=== PATIENT | female | born 1935 | race Caucasian/White ===

== ENCOUNTER → 2016-07-21 | Outpatient (CLI) | payer MEDICARE, BC | LOC: MW.CHFP 16:44 | PROVIDERS: ATTEND Nurse Practitioner Family | DX: R35.0 Frequency of micturition (principal) | CPT/HCPCS: 81001; 87086; G0463 ==

== ENCOUNTER → 2016-07-28 | Outpatient (CLI) | payer MEDICARE, BC | LOC: MW.CHFP 08:20 | PROVIDERS: ATTEND Nurse Practitioner Family | DX: R35.0 Frequency of micturition (principal) | CPT/HCPCS: 81001 ==

== ENCOUNTER → 2016-08-04 | Outpatient (CLI) | payer MEDICARE, BC | END | disposition home or self-care (01) | LOC: MW.CHFP 07:51 | PROVIDERS: ATTEND Nurse Practitioner Family | DX: N39.0 Urinary tract infection, site not specified (principal) | CPT/HCPCS: 81001 ==

== ENCOUNTER → 2016-08-13 | Outpatient (CLI) | payer MEDICARE, BC | LOC: MW.CHFP 11:41 | PROVIDERS: ATTEND Nurse Practitioner Family | DX: R35.0 Frequency of micturition (principal) | CPT/HCPCS: 81001; 87086 ==

== ENCOUNTER 2017-02-08 09:02 | Emergency (ER) | payer MEDICARE, BC ==
[2017-02-08 09:12] VITALS: BP 145/88
--- NOTE | 2017-02-08 09:54 | EDM.PDOC ---
ED HPI GENERAL MEDICAL PROBLEM - General Chief Complaint: General Stated Complaint: COLD Time Seen by Provider: 02/08/17 09:34 - History of Present Illness INITIAL COMMENTS - FREE TEXT/NARRATIVE: HISTORY AND PHYSICAL: History of present illness: Patient's an 82-year-old white female who presents with concern of congestion and cold symptoms for the last several weeks she denies fever chills nausea vomiting chest pain or shortness of breath she states she's had a mild nonproductive cough she denies abdominal pain or other concern Review of systems: As per history of present illness and below otherwise all systems reviewed and negative. Past medical history: As per history of present illness and as reviewed below otherwise noncontributory. Surgical history: As per history of present illness and as reviewed below otherwise noncontributory. Social history: No reported history of drug or alcohol abuse. Family history: As per history of present illness and as reviewed below otherwise noncontributory. Physical exam: HEENT: Atraumatic, normocephalic, pupils reactive, negative for conjunctival pallor or scleral icterus, mucous membranes moist, throat clear, neck supple, nontender, trachea midline. Lungs: Clear to auscultation, breath sounds equal bilaterally, chest nontender. Heart: S1S2, regular, negative for clicks, rubs, or JVD. Abdomen: Soft, nondistended, nontender. Negative for masses or hepatosplenomegaly. Negative for costovertebral tenderness. Pelvis: Stable nontender. Genitourinary: Deferred. Rectal: Deferred. Extremities: Atraumatic, negative for cords or calf pain. Neurovascular unremarkable. Neuro: Awake, alert, oriented. Cranial nerves II through XII unremarkable. Cerebellum unremarkable. Motor and sensory unremarkable throughout. Exam nonfocal. Diagnostics: Influenza screen patient deferred chest x-ray or other diagnostics Therapeutics: None Impression: #1 sinusitis #2 pneumonitis Definitive disposition and diagnosis as appropriate pending reevaluation and review of above. - Related Data Allergies Allergy/AdvReac Type Severity Reaction Status Date / Time codeine Allergy Rash Verified 02/08/17 09:07 oxycodone Allergy Hives Verified 02/08/17 09:07 Sulfa (Sulfonamide Allergy Rash Verified 02/08/17 09:07 Antibiotics) Home Meds: Home Meds Levothyroxine [Synthroid] 50 mcg PO ACBREAKFAST 11/26/14 [History] Docusate Sodium [Stool Softener] 2 cap PO BEDTIME 03/13/16 [History] MV,Ca,Min/Iron Fum/FA/Vit K [Multi For Her Tablet] 1 tab PO DAILY 03/13/16 [ History] atorvaSTATin Calcium [Atorvastatin Calcium] 1 tab PO DAILY 03/13/16 [History] Past Medical History HEENT History: Other HEENT History: wears glasses Cardiovascular History: Reports: High Cholesterol Respiratory History: Reports: None Gastrointestinal History: Reports: None Genitourinary History: Reports: None SEATING CAPTAIN History: Reports: None Musculoskeletal History: Reports: Fracture Other Musculoskeletal History: right leg Neurological History: Reports: Migraines Other Neuro History: visual disturbances with migranes Psychiatric History: Reports: None Endocrine/Metabolic History: Reports: Hypothyroidism Hematologic History: Reports: None Immunologic History: Reports: None Oncologic (Cancer) History: Reports: None Dermatologic History: Reports: None - Infectious Disease History Infectious Disease History: Reports: Chicken Pox, Measles, Mumps - Past Surgical History Head Surgeries/Procedures: Reports: None HEENT Surgical History: Reports: Tonsillectomy Respiratory Surgical History: Reports: None GI Surgical History: Reports: Appendectomy, Cholecystectomy Female Surgical History: Reports: Hysterectomy, Salpingo-Oophorectomy, Other (See Below) Endocrine Surgical History: Reports: None Neurological Surgical History: Reports: None Musculoskeletal Surgical History: Reports: None Oncologic Surgical History: Reports: None Social & Family History - Family History Family Medical History: Noncontributory - Tobacco Use Smoking Status *Q: Never Smoker Second Hand Smoke Exposure: No - Caffeine Use Caffeine Use: Reports: Coffee - Recreational Drug Use Recreational Drug Use: No Drug Use in Last 12 Months: No ED ROS GENERAL - Review of Systems Review Of Systems: ROS reveals no pertinent complaints other than HPI. ED EXAM, GENERAL - Physical Exam Exam: See Below (See dictation) Course - Vital Signs Last Recorded V/S: Last Vital Signs Temp 36.1 C 02/08/17 09:08 Pulse 82 02/08/17 09:08 Resp 18 02/08/17 09:08 BP 145/88 H 02/08/17 09:08 Pulse Ox 97 02/08/17 09:08 - Orders/Labs/Meds Orders: Active Orders 24 hr Category Date Time Status INFLUENZA A+B AG SCREEN [RM] Stat Lab 02/08/17 09:26 Received Departure - Departure Time of Disposition: 09:53 Disposition: Home, Self-Care 01 Condition: Good Clinical Impression: Sinusitis, Pneumonitis - Discharge Information Referrals: Carolina Richardson RN EXAMINER [Primary Care Provider] - Additional Instructions: The following information is given to patients seen in the emergency department who are being discharged to home. This information is to outline your options for follow-up care. We provide all patients seen in our emergency department with a follow-up referral. The need for follow-up, as well as the timing and circumstances, are variable depending upon the specifics of your emergency department visit. If you don't have a primary care physician on staff, we will provide you with a referral. We always advise you to contact your personal physician following an emergency department visit to inform them of the circumstance of the visit and for follow-up with them and/or the need for any referrals to a consulting specialist. The emergency department will also refer you to a specialist when appropriate. This referral assures that you have the opportunity for followup care with a specialist. All of these measure are taken in an effort to provide you with optimal care, which includes your followup. Under all circumstances we always encourage you to contact your private physician who remains a resource for coordinating your care. When calling for followup care, please make the office aware that this follow-up is from your recent emergency room visit. If for any reason you are refused follow-up, please contact the [facility] emergency department at and asked to speak to the emergency department charge nurse. Levaquin as prescribed [id number] cough medicine as directed follow-up primary medical doctor 1-2 days return as needed as discussed - My Orders Last 24 Hours: My Active Orders 02/08/17 09:26 INFLUENZA A+B AG SCREEN [RM] Stat - Assessment/Plan Last 24 Hours: My Active Orders 02/08/17 09:26 INFLUENZA A+B AG SCREEN [RM] Stat
== END 2017-02-08 10:13 | disposition home or self-care (01) ==
LOC: MW.ED 09:02
DX: J18.9 Pneumonia, unspecified organism (principal); J32.9 Chronic sinusitis, unspecified; Z88.5 Allergy status to narcotic agent; Z88.2 Allergy status to sulfonamides; Z79.899 Other long term (current) drug therapy
CPT/HCPCS: 87804; 99282; 99283

== ENCOUNTER 2018-10-07 08:42 | Emergency (ER) | payer MEDICARE, BC ==
--- NOTE | 2018-10-07 09:02 | EDM.PDOC ---
ED HPI GENERAL MEDICAL PROBLEM - General Chief Complaint: Lower Extremity Injury/Pain Stated Complaint: SPRAIN RIGHT FOOT Time Seen by Provider: 10/07/18 09:01 Source of Information: Reports: Patient - History of Present Illness INITIAL COMMENTS - FREE TEXT/NARRATIVE: HISTORY AND PHYSICAL: History of present illness: [Patient stood up from a chair yesterday and had a fall no head injury or loss of consciousness her foot became entangled under [employer] chair she now complains of 5 out of 10 with weightbearing nonradiating unable to bear full weight on her right foot ] Review of systems: As per history of present illness and below otherwise all systems reviewed and negative. Past medical history: As per history of present illness and as reviewed below otherwise noncontributory. Surgical history: As per history of present illness and as reviewed below otherwise noncontributory. Social history: No reported history of drug or alcohol abuse. Family history: As per history of present illness and as reviewed below otherwise noncontributory. Physical exam: HEENT: Atraumatic, normocephalic, pupils reactive, negative for conjunctival pallor or scleral icterus, mucous membranes moist, throat clear, neck supple, nontender, trachea midline. Lungs: Clear to auscultation, breath sounds equal bilaterally, chest nontender. Heart: S1S2, regular, negative for clicks, rubs, or JVD. Abdomen: Soft, nondistended, nontender. Negative for masses or hepatosplenomegaly. Negative for costovertebral tenderness. Pelvis: Stable nontender. Genitourinary: Deferred. Rectal: Deferred. Extremities: Atraumatic, negative for cords or calf pain. Neurovascular unremarkable. Right foot is tender over the dorsum was moderate bruising and swelling otherwise neurovascularly intact no open lesion Neuro: Awake, alert, oriented. Cranial nerves II through XII unremarkable. Cerebellum unremarkable. Motor and sensory unremarkable throughout. Exam nonfocal. Diagnostics: [Right foot 3 views ] Therapeutics: [Rest ice ibuprofen ] Impression: [Right foot pain/injury] Definitive disposition and diagnosis as appropriate pending reevaluation and review of above. Right Feet Pain Score (Numeric/FACES): 8 - Related Data Allergies Allergy/AdvReac Type Severity Reaction Status Date / Time codeine Allergy Rash Verified 10/07/18 09:01 oxycodone Allergy Hives Verified 10/07/18 09:01 Sulfa (Sulfonamide Allergy Rash Verified 10/07/18 09:01 Antibiotics) Home Meds: Home Meds Levothyroxine [Synthroid] 50 mcg PO ACBREAKFAST 11/26/14 [History] Docusate Sodium [Stool Softener] 2 cap PO BEDTIME 03/13/16 [History] MV,Ca,Min/Iron Fum/FA/Vit K [Multi For Her Tablet] 1 tab PO DAILY 03/13/16 [ History] atorvaSTATin Calcium [Atorvastatin Calcium] 1 tab PO DAILY 03/13/16 [History] Past Medical History HEENT History: Other HEENT History: wears glasses Cardiovascular History: Reports: High Cholesterol Respiratory History: Reports: None Gastrointestinal History: Reports: None Genitourinary History: Reports: None ASSIGNER History: Reports: None Musculoskeletal History: Reports: Fracture Other Musculoskeletal History: right leg Neurological History: Reports: Migraines Other Neuro History: visual disturbances with migranes Psychiatric History: Reports: None Endocrine/Metabolic History: Reports: Hypothyroidism Hematologic History: Reports: None Immunologic History: Reports: None Oncologic (Cancer) History: Reports: None Dermatologic History: Reports: None - Infectious Disease History Infectious Disease History: Reports: Chicken Pox, Measles, Mumps - Past Surgical History Head Surgeries/Procedures: Reports: None HEENT Surgical History: Reports: Tonsillectomy Respiratory Surgical History: Reports: None GI Surgical History: Reports: Appendectomy, Cholecystectomy Female Surgical History: Reports: Hysterectomy, Salpingo-Oophorectomy, Other (See Below) Endocrine Surgical History: Reports: None Neurological Surgical History: Reports: None Musculoskeletal Surgical History: Reports: None Oncologic Surgical History: Reports: None Social & Family History - Family History Family Medical History: Noncontributory - Caffeine Use Caffeine Use: Reports: Coffee Review of Systems - Review of Systems Review Of Systems: See Below ED EXAM, GENERAL - Physical Exam Exam: See Below Course - Vital Signs Last Recorded V/S: Last Vital Signs Temp 96.9 F 10/07/18 09:03 Pulse 77 10/07/18 09:03 Resp 16 10/07/18 09:03 BP 131/70 10/07/18 09:03 Pulse Ox 95 10/07/18 09:03 Departure - Departure Time of Disposition: 09:54 Disposition: Home, Self-Care 01 Condition: Good Clinical Impression: Foot pain, Foot injury - Discharge Information Forms: ED Department Discharge Additional Instructions: Cam boot crutches nonweightbearing Rest ice ibuprofen Follow-up with orthopedist, call phone number below to schedule appropriate follow-up [facility] [address], [address] [place] [address] my orthopedic The following information is given to patients seen in the emergency department who are being discharged to home. This information is to outline your options for follow-up care. We provide all patients seen in our emergency department with a follow-up referral. The need for follow-up, as well as the timing and circumstances, are variable depending upon the specifics of your emergency department visit. If you don't have a primary care physician on staff, we will provide you with a referral. We always advise you to contact your personal physician following an emergency department visit to inform them of the circumstance of the visit and for follow-up with them and/or the need for any referrals to a consulting specialist. The emergency department will also refer you to a specialist when appropriate. This referral assures that you have the opportunity for follow-up care with a specialist. All of these measure are taken in an effort to provide you with optimal care, which includes your follow-up. Under all circumstances we always encourage you to contact your private physician who remains a resource for coordinating your care. When calling for follow-up care, please make the office aware that this follow-up is from your recent emergency room visit. If for any reason you are refused follow-up, please contact the [facility] emergency department at and asked to speak to the emergency department charge nurse.
[2018-10-07 09:05] VITALS: BP 131/70
--- NOTE | 2018-10-07 09:51 | CR ---
EXAMINATION: Right foot HISTORY: Pain COMPARISON: None TECHNIQUE: 3 views FINDINGS/IMPRESSION: There is no acute osseous abnormality, dislocation, or fracture. Bone mineralization and joint spaces appear grossly preserved. No focal soft tissue swelling.
== END 2018-10-07 10:00 | disposition home or self-care (01) ==
LOC: MW.ED 08:42
DX: S99.921A Unspecified injury of right foot, initial encounter (principal); E03.9 Hypothyroidism, unspecified; E78.00 Pure hypercholesterolemia, unspecified; Z79.899 Other long term (current) drug therapy; Z88.5 Allergy status to narcotic agent; Z88.2 Allergy status to sulfonamides; Z88.6 Allergy status to analgesic agent; W19.XXXA Unspecified fall, initial encounter
CPT/HCPCS: 73630-26-RT; 73630-RT; 99283-25